=== PATIENT | female | born 1965 | race Caucasian/White ===

== ENCOUNTER → 2017-11-12 | Outpatient (CLI) | payer MEDICAID ==
[~2017-11-12] MED LIST: CALC600T63 PO; CRAN200C5 PO; ESOM40CA42 PO; LEVA15HF IH; MULT-1097 PO
--- NOTE | 2017-11-19 11:02 | RADIOLOGY IMAGING REPORT ---
FACILITY: [facility] [place] PATIENT NAME: ABELARDO CALDERON : [id number] MR: [id number] V: [id number] EXAM DATE: ORDERING PHYSICIAN: KEY RIVERS TECHNOLOGIST: Lluvia Tucker PROCEDURE:BILATERAL DIAGNOSTIC DIGITAL MAMMOGRAM WITH CAD ASSISTED INTERPRETATION & 3D TOMOSYNTHESIS COMPARISON:Prior mammograms 05/15/17, 11/16/16, 11/06/16. There are bilateral subpectoral breast implants in place. INDICATIONS:6 MO F/U CALCS FINDINGS: Dense heterogeneous fibroglandular tissue is seen anterior to the implants. The previously noted calcifications in the lateral portion of the Right breast appear relatively stable. A 6 month follow-up Right mammogram is recommended to document stability for a 2 year period. DIAGNOSTIC CATEGORY 3--PROBABLY BENIGN FINDING. RECOMMENDATIONS: SIX MONTH FOLLOW-UP DIAGNOSTIC MAMMOGRAM: RIGHT BREAST. IMPRESSION: BIRADS 3: Probably benign finding A 6 month follow-up Right mammogram is recommended to document stability of the Right lateral breast calcifications over a 2 year period. Dictated by: Shona Padilla M.D. on 11/12/2017 at 15:16 Transcribed by: AMI on 11/12/2017 at 15:29 Approved by: Shona Padilla M.D. on 11/13/2017 at 9:01 [facility]
== END ==
LOC: MAMO 02:52
PROVIDERS: ATTEND Emergency Medicine
DX: R92.1 Mammographic calcification found on diagnostic imaging of breast (principal)
CPT/HCPCS: 77062; 77066

== ENCOUNTER → 2018-05-22 | Outpatient (CLI) | payer MEDICAID ==
[~2018-05-22] MED LIST changes: +SULF-198 PO
--- NOTE | 2018-05-23 10:44 | RADIOLOGY IMAGING REPORT ---
FACILITY: [facility] PATIENT NAME: ABELARDO CALDERON : [id number] MR: [id number] V: [id number] EXAM DATE: ORDERING PHYSICIAN: KEY RIVERS TECHNOLOGIST: Sybil Dai PROCEDURE:RIGHT DIGITAL DIAGNOSTIC MAMMOGRAM WITH CAD ASSISTED INTERPRETATION & 3D TOMOSYNTHESIS COMPARISON:Prior mammograms 11/12/17, 05/15/17, 11/16/16, 11/06/16. INDICATIONS:6 month follow up mammogram FINDINGS: The patient received full field Right CC and Right MLO implant displacement views with 3D Tomosynthesis. The patient also received Spot compression views in the Right CC implant displacement position. Heterogeneously dense fibroglandular tissue is again seen throughout the Right breast. The previously noted calcifications in the lateral portion of the Right breast have remained stable. A 6 month follow-up bilateral mammogram is recommended at which time the patient will be due for her annual mammogram. DIAGNOSTIC CATEGORY 3--PROBABLY BENIGN FINDING. RECOMMENDATIONS: SIX MONTH FOLLOW-UP DIAGNOSTIC MAMMOGRAM: BILATERAL BREASTS. IMPRESSION: BIRADS 3: Probably benign finding. A 6 month follow-up bilateral mammogram is recommended at which time the patient will be due for her annual mammogram. Dictated by: Shona Padilla M.D. on 05/22/2018 at 17:01 Transcribed by: AMI on 05/23/2018 at 8:49 Approved by: Shona Padilla M.D. on 05/23/2018 at 10:43 [facility]
== END ==
LOC: MAMO 02:16
PROVIDERS: ATTEND Emergency Medicine
DX: R92.1 Mammographic calcification found on diagnostic imaging of breast (principal); Z98.82 Breast implant status
CPT/HCPCS: 77061; 77065

== ENCOUNTER → 2018-11-26 | Outpatient (CLI) | payer BC ==
[~2018-11-26] MED LIST changes: +AZIT-17 PO; -MULT-1097 PO; +MULT-1540 PO
--- NOTE | 2018-11-26 10:41 | RADIOLOGY IMAGING REPORT ---
[place] [facility] [place] NAME: Jessica Murray : 1965 MR: [id number] V: [id number] EXAM DATE: ORDERING PHYSICIAN: KEY RIVERS TECHNOLOGIST: Location: [facility] Patient: Jessica Murray : 1965 Visit/Account:[id number] Date of Sevice: 11/26/2018 Exam type: CHEST PA LAT History: Cough x3 months Comparison: December 21, 2014. Findings: Again noted is mild hyperexpansion of the lung sood. There is a small amount of scarring versus at electasis in the upper lobes. No evidence of pleural effusions or pulmonary edema. The cardiac silh ouette is normal in size. The trachea is in midline. IMPRESSION: 1. There is a small amount of scarring versus atelectasis in the upper lobes Report Dictated By: Shona Padilla MD at 11/26/2018 10:35 AM Report E-Signed By: Shona Padilla MD at 11/26/2018 10:38 AM WSN:[email or web address]
== END ==
LOC: RAD 10:10
PROVIDERS: ATTEND Emergency Medicine
DX: R05 Cough (principal)
CPT/HCPCS: 71046

== ENCOUNTER → 2018-12-06 | Outpatient (CLI) | payer BC ==
--- NOTE | 2018-12-06 15:14 | RADIOLOGY IMAGING REPORT ---
FACILITY: [facility] [place] PATIENT NAME: ABELARDO CALDERON : [id number] MR: [id number] V: [id number] EXAM DATE: [id number] ORDERING PHYSICIAN: KEY RIVERS TECHNOLOGIST: Lluvia Tucker PROCEDURE:BILATERAL DIAGNOSTIC DIGITAL MAMMOGRAM WITH CAD ASSISTED INTERPRETATION & 3D TOMOSYNTHESIS COMPARISON:Prior mammograms dated 05/22/18, 11/12/17, 05/15/17, 11/16/16, 11/06/16 INDICATIONS:6 month follow up Right breast calcifications FINDINGS: There are bilateral subpectoral breast implants in place. There is no evidence of implant rupture or leakage. The breasts are heterogeneously dense which can obscure small masses. The parenchymal pattern has remained stable when allowing for difference in mammographic technique & patient positioning. A small grouping of round calcifications in the upper outer quadrant of the Right breast have remained stable for a 2 year period. DIAGNOSTIC CATEGORY 2--BENIGN FINDING. RECOMMENDATIONS: ROUTINE MAMMOGRAM AND CLINICAL EVALUATION. IMPRESSION: BIRADS 2: Benign finding. The round calcifications in the upper outer quadrant of the Right breast have remained stable for 2 years. Dictated by: Shona Padilla M.D. on 12/06/2018 at 14:34 Transcribed by: KIMBERLY on 12/06/2018 at 14:55 Approved by: Shona Padilla M.D. on 12/06/2018 at 15:13 [facility]
== END ==
LOC: MAMO 00:58
PROVIDERS: ATTEND Emergency Medicine
DX: R92.8 Other abnormal and inconclusive findings on diagnostic imaging of breast (principal)
CPT/HCPCS: 77062; 77066

== ENCOUNTER → 2018-12-31 | Outpatient (CLI) | payer BC ==
[2018-12-31 09:11] LABS: PLATELET COUNT, AUTOMATED 251 K/uL (150-450)
[2018-12-31 09:41] LABS: LDL CHOLESTEROL 75 mg/dl
== END ==
LOC: LAB 08:13
PROVIDERS: ATTEND Emergency Medicine
DX: Z00.00 Encounter for general adult medical examination without abnormal findings (principal)
CPT/HCPCS: 36415; 82040; 82247; 82306; 82310; 82374; 82435; 82465; 82565; 82607; 82947; 83036; 83718; 84075; 84132; 84155; 84295; 84443; 84450; 84460; 84478; 84520; 85025